=== PATIENT | male | born 1985 | race Caucasian/White ===

== ENCOUNTER 2019-03-10 15:29 | Emergency (ER) | payer MEDICAID ==
[~2019-03-10] VITALS: Ht 180.3 cm; Wt 77.3 kg
[2019-03-10 15:31] VITALS: Ht 180.3 cm; Wt 77.3 kg
[2019-03-10] MEDS ORDERED: HALDOL5 MG/ML IM (15:33)
[2019-03-10] MEDS ORDERED: TRAZODONE HCL150 MG PO (17:29)
[2019-03-10] MEDS ORDERED: VISTARIL50 MG PO (17:29)
[2019-03-10 17:50] VITALS: BP 125/75
== END 2019-03-10 17:50 ==
LOC: D.ER 15:29
DX: S05.42XA Penetrating wound of orbit with or without foreign body, left eye, initial encounter (principal); X58.XXXA Exposure to other specified factors, initial encounter

== ENCOUNTER 2020-08-14 21:25 | Emergency (ER) | payer MEDICAID ==
[~2020-08-14] VITALS: Ht 180.3 cm; Wt 84.3 kg
[~2020-08-14 21:25] MED LIST: HALDOL5 MG/ML IM; TRAZODONE HCL150 MG PO; VISTARIL50 MG PO
[2020-08-14 21:37] VITALS: BP 129/83; Ht 180.3 cm; Wt 84.3 kg
--- NOTE | 2020-08-14 22:18 | NUR ---
PATIENT IN ER FOR WANTING TO KILL HIMSELF BECAUSE HIS MOTHER WILL NOT LET HIM SEE HIS DAUGHTER OR TALK WITH HIS DAUGHTER. HE IS UNABLE TO COMMIT TO A SAFETY PLAN AT THIS TIME. HE IS ANXIOUS AND IS "ALL OVER THE PLACE". HE WAS GIVEN A 1-800 NUMBER FOR FUTURE REFERENCE. HE WILL BE PLACED ON ONE TO ONE.
[2020-08-14 22:22] LABS: BASOPHILS 0.4 % (0-2); EOSINOPHILS 0.7 % (0-7); HEMATOCRIT 41.1 % (42.0-54.0); IMMATURE GRANULOCYTES 0.1 % (0-5); LYMPHOCYTE ABS# 2.35 10x3/uL (1.32-3.57); LYMPHOCYTES 26.2 % (15-50); MCH 32.3 pg (26.0-34.0); MCHC 34.1 g/dL (31.0-37.0); MCV 94.9 fL (80.0-100.0); MEAN PLATELET VOLUME 9.9 fL (7.4-10.4); NEUTROPHIL ABS# 5.34 10x3/uL (1.78-5.38); NEUTROPHILS 59.6 % (40-80); PLATELET COUNT 294 10x3/uL (130-400); RBC 4.33 10x6/uL (4.20-6.10)
[2020-08-14 22:36] LABS: BILIRUBIN NEGATIVE (NEGATIVE); KETONE SMALL mg/dL (NEGATIVE); NITRITE NEGATIVE (NEGATIVE); UROBILINOGEN NORMAL mg/dL (< 2)
[2020-08-14 22:37] LABS: ANION GAP 11.6 mmol/L (8-16); CALCIUM 8.7 mg/dL (8.5-10.1); CARBON DIOXIDE 27.5 mmol/L (21.0-32.0); CREATININE - SERUM 1.4 mg/dL (0.6-1.3); POTASSIUM - SERUM 4.1 mmol/L (3.5-5.1)
[2020-08-14 22:39] LABS: BACTERIA FEW HPF (NONE SEEN); SQUAMOUS EPITHELIAL 0-5 HPF (0-4); WHITE CELLS - URINE 0-5 HPF (0-1)
[2020-08-14 22:42] LABS: ALBUMIN 4.3 g/dL (3.4-5.0); BILIRUBIN - TOTAL 0.63 mg/dL (0.2-1.3); MAGNESIUM - SERUM 2.4 mg/dL (1.8-2.4); PROTEIN - SERUM 8.1 g/dL (6.4-8.2)
[2020-08-14 22:45] LABS: UDS - AMPHET POSITIVE QUAL (NEGATIVE); UDS - BARB NEGATIVE QUAL (NEGATIVE); UDS - BENZO NEGATIVE QUAL (NEGATIVE); UDS - COCAINE POSITIVE QUAL (NEGATIVE); UDS - OPIATE NEGATIVE QUAL (NEGATIVE); UDS - PCP NEGATIVE QUAL (NEGATIVE); UDS - THC POSITIVE QUAL (NEGATIVE)
[2020-08-14 23:56] LABS: SARS-CoV-2 ANTIGEN NEGATIVE- SARS-COV-2 (NEGATIVE)
== END 2020-08-15 04:28 ==
LOC: D.ER 21:25
PROVIDERS: Family Medicine
DX: R45.851 Suicidal ideations (principal); F31.9 Bipolar disorder, unspecified; F19.90 Other psychoactive substance use, unspecified, uncomplicated

== ENCOUNTER 2020-10-29 03:33 | Emergency (ER) | payer MEDICAID ==
[~2020-10-29] VITALS: Ht 180.3 cm; Wt 81.8 kg
[2020-10-29 03:37] VITALS: Ht 180.3 cm; Wt 81.8 kg
[2020-10-29 04:02] LABS: UDS - AMPHET NEGATIVE QUAL (NEGATIVE); UDS - BARB NEGATIVE QUAL (NEGATIVE); UDS - BENZO NEGATIVE QUAL (NEGATIVE); UDS - COCAINE POSITIVE QUAL (NEGATIVE); UDS - OPIATE NEGATIVE QUAL (NEGATIVE); UDS - PCP NEGATIVE QUAL (NEGATIVE); UDS - THC POSITIVE QUAL (NEGATIVE)
[2020-10-29 04:16] LABS: BILIRUBIN NEGATIVE (NEGATIVE); KETONE NEGATIVE (NEGATIVE); NITRITE NEGATIVE (NEGATIVE); UROBILINOGEN NORMAL mg/dL (< 2)
[2020-10-29 04:49] LABS: BASOPHILS 1.2 % (0-2); EOSINOPHILS 1.1 % (0-7); HEMATOCRIT 40.1 % (42.0-54.0); HEMOGLOBIN 12.9 g/dL (13.5-17.5); LYMPHOCYTES 32.8 % (15-50); MCH 31.4 pg (26.0-34.0); MCHC 32.3 g/dL (31.0-37.0); MCV 97.2 fL (80.0-100.0); MEAN PLATELET VOLUME 8.4 fL (7.4-10.4); MONOCYTES 14.2 % (2-11); NEUTROPHILS 50.7 % (40-80); PLATELET COUNT 258 10x3/uL (130-400); RBC 4.12 10x6/uL (4.20-6.10); RDW 13.1 % (11.5-14.5); WBC 8.1 10x3/uL (4.8-10.8)
[2020-10-29 05:17] LABS: CALC OSMOLALITY 284 mosm/kg (275-300); CALCIUM 8.4 mg/dL (8.5-10.1); CARBON DIOXIDE 25.6 mmol/L (21.0-32.0); CHLORIDE - SERUM 105 mmol/L (98-107); GLUCOSE 105 mg/dL (74-106); POTASSIUM - SERUM 3.8 mmol/L (3.5-5.1); SODIUM 142 mmol/L (136-145); UREA NITROGEN 17 mg/dL (7-18); eGFR NON AFRICAN AMERICAN 90 mL/min (90-120)
[2020-10-29 05:24] LABS: ALBUMIN 3.7 g/dL (3.4-5.0); ALKALINE PHOSPHATASE 56 U/L (30-120); ALT (SGPT) 23 U/L (10-68); BILIRUBIN - TOTAL 0.74 mg/dL (0.2-1.3); MAGNESIUM - SERUM 2.2 mg/dL (1.8-2.4); PROTEIN - SERUM 6.9 g/dL (6.4-8.2)
--- NOTE | 2020-10-29 06:27 | NUR ---
DR MCCORMICK NOTIFIED AND SITTER ORDERED. SITTER AT BEDSIDE, NOTIFIED CHARGE NURSE AND ATTENDING IN REGARDS TO ASSESSMENT FINDINGS. RESOURCES GIVEN TO PT. PATIENT REFUSED TO SIGN SAFETY PLAN. PATIENT WAS YELLING AT NURSE DURING THE ASSESSMENT DUE TO HER AWAKING HIM TO ANSWER ALL THESES QUESTIONS. REPORTED TO NURSE "I HAVE BEEN HERE TWO TIMES AND NOBODY EVERY DID A SURVEY LIKE THIS." FIRST WAS GOING TO REFUSE TO ANSWER ANY QUESTIONS UNTIL THE ED NURSE SPOKE TO HIM AT WHICH TIME HE TOLD HER "BYE" AND TOLD THE NURSE TO GO ON AND GET THIS OVER WITH. THREATENED TO [place] NURSE IF SHE DIDN'T RECORD EVERYTHING JUST HE HAD STATED THEM.
[2020-10-29 16:24] VITALS: BP 107/61
== END 2020-10-29 16:25 ==
LOC: D.ER 03:33
PROVIDERS: Family Medicine
DX: R45.851 Suicidal ideations (principal); R41.82 Altered mental status, unspecified; F19.10 Other psychoactive substance abuse, uncomplicated; Z91.19 Patient's noncompliance with other medical treatment and regimen